=== PATIENT | female | born 1985 | race Caucasian/White ===

== ENCOUNTER 2017-12-12 10:09 | Emergency (ER) | payer OTHER ==
[~2017-12-12] VITALS: Ht 172.7 cm; Wt 67.5 kg
[~2017-12-12 10:09] MED LIST: MODAFINIL200 MG PO; Micronor,Nor-Q-D,Err PO; Motrin PO; NORCO 5/3251 TABLET PO; PRENATAL VITAM1 EAC5 PO; PROMETHAZINE HC25 M1 PO; Robitussin DM PO; SERTRALINE HCL25 MG PO
[2017-12-12 12:06] LABS: BASOPHIL (%) 0.6 % (0-1); EOSINOPHIL (%) 1.1 % (0-5); EOSINOPHIL COUNT 0.1 K/uL (0-0.3); HEMATOCRIT 39.2 % (36.0-46.0); HEMOGLOBIN 13.9 G/DL (11.9-15.5); IMMATURE GRANULOCYTE (%) 0.2 % (0.0-0.7); MCH 34.8 PG (29.0-34.0); MCHC 35.5 G/DL (30.0-36.0); MCV 98.2 FL (83-99); MONOCYTE (%) 8.8 % (3-12); MONOCYTE COUNT 0.5 K/uL (0-0.8); NEUTROPHIL (%) 52.3 % (45-76); NEUTROPHIL COUNT 2.8 K/uL (1.8-6.4); PLATELET COUNT 216 K/uL (156-360); RBC DIS.WIDTH-CV 11.9 % (11.8-14.6); RBC DIS.WIDTH-SD 43.1 % (39-53); RED BLOOD COUNT 3.99 M/uL (3.80-5.20); WHITE BLOOD COUNT 5.3 K/uL (4.1-10.2)
[2017-12-12 12:14] LABS: CHLORIDE 108 mEq/L (99-109); POTASSIUM 4.7 mEq/L (3.7-5.4); SODIUM 141 mEq/L (136-147)
[2017-12-12 12:15] LABS: GLUCOSE 84 mg/dL (70-99)
[2017-12-12 12:19] LABS: CREATININE 0.8 mg/dL (0.6-1.3); GFR ESTIMATE (CALCULATED) > 59 mL/min/
[2017-12-12 12:20] LABS: UREA NITROGEN (BUN) 8 mg/dL (9-23)
[2017-12-12] MEDS ORDERED: PREDNISONE50 MG PO (12:53)
[2017-12-12] MEDS ORDERED: AUGMENTIN875 MG PO (12:53)
[2017-12-12 13:10] VITALS: BP 119/75
== END 2017-12-12 13:11 | disposition home or self-care (01) ==
LOC: EME 10:09
PROVIDERS: Emergency Medicine
DX: L27.0 Generalized skin eruption due to drugs and medicaments taken internally (principal); T36.4X5A Adverse effect of tetracyclines, initial encounter
CPT/HCPCS: 80048; 85025; 99281; 99284